=== PATIENT | male | born 1965 | race Caucasian/White ===

== ENCOUNTER → 2018-05-11 | Outpatient (REF) | payer MEDICARE, MEDICAID ==
[2018-05-11 14:17] LABS: VITAMIN B12 LEVEL 484 PG/ML
[2018-05-11 14:21] LABS: FREE T4 0.96 NG/DL (0.76-1.46); RHEUMATOID FACTOR QUANT < 10.0 IU/ML (<15.0); THYROID STIMULATING HORMONE 0.594 uIU/ML (0.358-3.740); TOTAL PROTEIN 6.5 GM/DL (6.4-8.2)
[2018-05-11 14:27] LABS: ESTIMATED AVERAGE GLUCOSE 140 MG/DL (60-110); HEMOGLOBIN A1c 6.5 %
[2018-05-11 14:55] LABS: ERYTHROCYTE SEDIMENTATION RATE 2 mm/hr (0-20)
[2018-05-16 10:32] LABS: DRVV SCREEN 42.4 SEC
[2018-05-16 11:56] LABS: ALBUMIN % 63.1 % (55.8-66.1); ALPHA-1-GLOBULIN % 5.3 % (2.9-4.9); ALPHA-1-GLOBULINS 0.34 GM/DL (0.17-0.41); ALPHA-2-GLOBULINS 0.81 GM/DL (0.42-0.99); ALPHA-2-GLOBULINS % 12.5 % (7.1-11.8); BETA-1-GLOBULINS 0.38 GM/DL (0.28-0.60); BETA-1-GLOBULINS % 5.9 % (4.7-7.2); BETA-2-GLOBULINS 0.32 GM/DL (0.19-0.55); BETA-2-GLOBULINS % 4.9 % (3.2-6.5); GAMMA GLOBULIN % 8.3 % (11.1-18.8); GAMMA GLOBULINS 0.54 GM/DL (0.65-1.58)
[2018-05-17 00:08] LABS: ANTINUCLEAR ANTIBODIES DIRECT Negative (Negative); VITAMIN B1 LEVEL WHOLE BLOOD 128.9 nmol/L (66.5-200.0); VITAMIN E(ALPHA TOCOPHEROL) 9.5 mg/L (7.0-25.1)
== END ==
LOC: M LABNEURO 10:13
DX: G62.9 Polyneuropathy, unspecified (principal); Z79.899 Other long term (current) drug therapy
CPT/HCPCS: 82746

== ENCOUNTER → 2018-07-20 | Outpatient (CLI) | payer MEDICARE, MEDICAID | LOC: M RAD 08:47 | DX: M51.26 Other intervertebral disc displacement, lumbar region (principal); M51.27 Other intervertebral disc displacement, lumbosacral region; M48.061 Spinal stenosis, lumbar region without neurogenic claudication; M12.88 Other specific arthropathies, not elsewhere classified, other specified site; M25.552 Pain in left hip; M47.26 Other spondylosis with radiculopathy, lumbar region | CPT/HCPCS: 72148 ==

== ENCOUNTER 2018-09-25 14:13 | Day surgery (SDC) | payer MEDICARE ==
[~2018-09-25 14:13] MED LIST: LIDOCAINE 1% MDV 20ML VIAL SQ; LIDOCAINE 2% INJ 100 MG/5 ML SDV (FOR ANES.) As Ordered; MIDAZOLAM INJ 2 MG/2 ML VIAL (J2250) As Ordered; PROPOFOL 200 MG/20 ML VIAL As Ordered; ROCURONIUM BROMIDE 50 MG/5 ML VIAL As Ordered; fentaNYL 250 MCG/5 ML INJECTION (J3010) As Ordered
[2018-09-25] MEDS ORDERED: ROCURONIUM BROMIDE 50 MG/5 ML VIAL As Ordered ×2 (14:25)
[2018-09-25] MEDS: LR 1,000 ML IV ×4 (15:05→19:15)
[2018-09-25] MEDS: CelecoXIB 400 MG CAP PO ×2 (15:06)
[2018-09-25] MEDS: GABAPENTIN 300 MG CAP PO ×4 (15:06→21:19)
[2018-09-25] MEDS: PERCOCET 5MG/325MG TAB PO ×4 (15:06→21:19)
[2018-09-25] MEDS ORDERED: ESMOLOL INJ 100MG/10ML VIAL As Ordered ×2 (16:38)
[2018-09-25] MEDS: BACITRACIN PWD 50,000 UNITS VIAL As Ordered ×2 (16:42)
[2018-09-25] MEDS: BUPIVACAINE/EPIN 0.25% 30 ML VIAL As Ordered ×2 (16:42)
[2018-09-25] MEDS: THROMBIN SOLN 20,000 UNITS KIT As Ordered ×2 (16:42)
[2018-09-25] MEDS ORDERED: GLYCOPYRROLATE INJ 0.2 MG/ML 2 ML VIAL As Ordered ×2 (17:23)
[2018-09-25] MEDS ORDERED: NEOSTIGMINE 10 MG/10 ML VIAL (J2710) As Ordered ×2 (17:23)
[2018-09-25] MEDS ORDERED: ONDANSETRON 4MG/2ML VIAL (J2405) As Ordered ×2 (17:23)
[2018-09-25] MEDS ORDERED: METOCLOPRAMIDE INJ 10MG/2ML VIAL (J2765) As Ordered ×2 (17:24)
[2018-09-25] MEDS ORDERED: dexameTHASONE 4 MG/ML 1ML VIAL (J1100) As Ordered ×4 (17:24)
[2018-09-25] MEDS: BUPIVACAINE HCL 0.5% 10 ML VIAL As Ordered ×2 (17:52)
[2018-09-25] MEDS: BUPIVACAINE LIPOSOME/PF 1.3% 20ML VIAL (13.3MG/ML)(EXPAREL)(C9290 PER1MG) As Ordered ×2 (17:52)
[2018-09-25] MEDS ORDERED: KETOROLAC 60 MG/2 ML VIAL (J1885) As Ordered ×2 (18:01)
[2018-09-25] MEDS ORDERED: ONDANSETRON 4MG/2ML VIAL (J2405) IV ×2 (19:15)
[2018-09-25] MEDS ORDERED: METOCLOPRAMIDE INJ 10MG/2ML VIAL (J2765) IV ×2 (19:15)
[2018-09-25] MEDS ORDERED: PERCOCET 5MG/325MG TAB PO ×4 (19:15→19:30)
[2018-09-25] MEDS ORDERED: fentaNYL 100 MCG/2 ML INJECTION (J3010) IV ×2 (19:15)
[2018-09-25] MEDS ORDERED: MORPHINE 10 MG/ML 1ML VIAL (J2270) IV ×2 (19:15)
[2018-09-25] MEDS ORDERED: tiZANidine 4 MG TAB PO ×2 (19:30)
[2018-09-25] MEDS ORDERED: HYDROMORPHONE HCL 0.5 MG/ 0.5 ML SYRINGE (J1170 PER 1) IV ×4 (19:30)
[2018-09-25] MEDS ORDERED: NORTRIPTYLINE 10 MG CAP PO ×2 (19:30)
[2018-09-25] MEDS: D5W/LR 1,000 ML IV ×2 (21:29)
[2018-09-26] MEDS: PERCOCET 5MG/325MG TAB PO ×4 (04:38→10:54)
[2018-09-26] MEDS: CelecoXIB (CeleBREX) 100 MG CAP PO ×2 (08:24)
[2018-09-26] MEDS: GABAPENTIN 300 MG CAP PO ×2 (08:24)
[2018-09-26] MEDS: D5W/LR 1,000 ML IV ×2 (08:24)
== END 2018-09-26 10:55 | disposition home or self-care (01) ==
LOC: M SDC 14:13 → M MS5PR 19:55
DX: M51.26 Other intervertebral disc displacement, lumbar region (principal); M54.16 Radiculopathy, lumbar region; E78.5 Hyperlipidemia, unspecified; F17.210 Nicotine dependence, cigarettes, uncomplicated; Z79.899 Other long term (current) drug therapy
CPT/HCPCS: 63030